=== PATIENT | male | born 1965 | race African-American/Black ===

== ENCOUNTER 2025-06-21 15:32 | Emergency (ER) | payer OTHER ==
[~2025-06-21] VITALS: Ht 193 cm; Wt 109.0 kg
[2025-06-21 15:49] VITALS: TEMP 98.1
[2025-06-21] MEDS ORDERED: IBUP-1492 PO (18:05)
[2025-06-21] MEDS ORDERED: ACET-2247 PO (18:05)
[2025-06-21] MEDS: IBUPROFEN 600 MG TABLET PO ONE (18:17)
[2025-06-21 20:16] VITALS: BP 119/64; PULSE 63; RESP 19; O2SAT 99
== END 2025-06-21 20:33 | disposition home or self-care (01) ==
LOC: EMS 15:34
DX: M25.562 Pain in left knee (principal); G89.29 Other chronic pain; W01.0XXA Fall on same level from slipping, tripping and stumbling without subsequent striking against object, initial encounter; Y93.89 Activity, other specified; Y92.89 Other specified places as the place of occurrence of the external cause; Y99.8 Other external cause status
CPT/HCPCS: 29505; 99283